=== PATIENT | male | born 1990 | race African-American/Black ===

== ENCOUNTER 2017-05-19 04:00 | Inpatient (IN) | payer OTHER ==
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
--- NOTE | ~2017-05-19 | DS ---
Unit #: [id number] #: [id number] Patient: IFEOMA YANG [id number] [facility] [address] [place] [address] [id number] MR#: [id number] NAME: IFEOMA YANG ROOM: P256 Age: 26 Sex: M Admission Date: 05/19/2017 : 1990 Discharge Date: 05/20/2017 Attending Physician: Sagar Galvin M.D. Primary Care Physician: Primary Care Physician No DISCHARGE SUMMARY REASON FOR ADMISSION Ifeoma is a 26-year-old man with a history of bipolar disorder and alcohol abuse, who presented to [facility] after ingesting 2 bottles of NyQuil. He could not state whether or not this was a suicide attempt, but later denied this stating he was just trying to "get a buzz." He was transferred from [facility] to [facility]. DIAGNOSTIC STUDIES LABORATORY RESULTS: Please see hospital chart. HOSPITAL COURSE Ifeoma was admitted and placed on overnight on suicide precautions. His home medications were determined by contacting his pharmacy and were restarted, however, the patient stated that he was absolutely not suffering from suicidal ideation and declined to accept medication or treatment. He stated that he had a "job to get to" and so that he would refuse all treatment. At this point, he no longer meets criteria for involuntary hospitalization, and he was discharged at his request. DISCHARGE DIAGNOSES AXIS I: Alcohol abuse; bipolar, not otherwise specified. AXIS II: Antisocial traits. AXIS III: Hypertension. AXIS IV: AXIS V: DISCHARGE INSTRUCTIONS The patient was given information for local mental health resources for followup and urge to follow up with his primary care physician. DISCHARGE MEDICATIONS Risperdal 2 mg b.i.d. for mood stability. Primary care medicines included Fergon 324 mg for iron supplementation, Lopressor 50 mg b.i.d. for hypertension, and Colace 100 mg b.i.d. for constipation. CONDITION AT DISCHARGE Improved. PROGNOSIS Fair. DIET AND ACTIVITY Unit #: [id number] #: [id number] Patient: IFEOMA YANG Ad miki. Dictated by... Sagar Galvin M.D. [facility]/yasmine TD: 05/21/2017 13:17 JOB #: [id number] DISCHARGE SUMMARY Page 1 of 1 X Sagar Galvin MD DISCHARGE SUMMARY
--- NOTE | ~2017-05-19 | HP ---
Unit #: [id number] #: [id number] Patient: IFEOMA YANG [id number] [place] [address] [id number] MR#: [id number] NAME: IFEOMA YANG ROOM: P256 Age: 26 Sex: M Admission Date: 05/19/2017 : 1990 Attending Physician: Sagar Galvin M.D. Admitting Physician: Sagar Galvin M.D. Primary Care Physician: Primary Care Physician No HISTORY AND PHYSICAL HISTORY OF PRESENT ILLNESS Ifeoma is a 26 year old admitted to [address] [place] [address] with depression after an alleged overdose of Nyquil. PAST MEDICAL HISTORY 1. High blood pressure. 2. History of anemia. PAST SURGICAL HISTORY Nothing reported. ALLERGIES No known drug allergies. SOCIAL HISTORY Smokes one pack per day. Drinks alcohol on occasion. Admits to using marijuana frequently. FAMILY HISTORY Medically noncontributory. REVIEW OF SYSTEMS CONSTITUTIONAL: No fever or chills. HEENT: Denies any sore throat, ear pain or runny nose. CARDIOVASCULAR: Denies chest pain, irregular heart rhythm or palpitations. CHEST: Denies shortness of breath or cough. No hemoptysis. GASTROINTESTINAL: Denies nausea, vomiting, diarrhea or chronic constipation. ENDOCRINE: Denies history of increased thirst or urination. No recent significant weight loss or gain. GENITOURINARY: Denies dysuria, frequency, or hematuria. SKIN: Denies any rashes. HEMATOLOGIC: Denies history of increased bleeding or bruising. MUSCULOSKELETAL: Denies any hot, swollen joints. No generalized muscle pain. NEUROLOGIC: Denies problems with vision or speech. No frequent, severe headaches. No numbness, tingling or weakness in any extremities. Denies loss of bladder or bowel control. CURRENT MEDICATIONS 1. Desyrel 50 mg q.h.s. 2. Risperdal 2 mg b.i.d. 3. Lopressor 50 mg b.i.d. Unit #: [id number] #: [id number] Patient: IFEOMA YANG 4. Ferrous gluconate 324 mg b.i.d. 5. Milk of Magnesia p.r.n. 6. Maalox p.r.n. 7. Tylenol p.r.n. 8. Colace q. day. PHYSICAL EXAMINATION GENERAL: Alert, well nourished. No apparent distress. VITAL SIGNS: Blood pressure 152/90, heart rate 74, respirations 16, and temperature 98.6. WEIGHT: 181. HEIGHT: 6 feet 3 inches. SKIN: Warm and dry without rash or lesion. HEENT: Normocephalic. TMs not viewed. Oral and nasal passages clear. Conjunctivae clear. PERRLA. EOMs intact. NECK: Supple without lymphadenopathy or thyromegaly. HEART: Regular rate and rhythm without murmur. LUNGS: Clear. ABDOMEN: Soft, nontender. : Not done. EXTREMITIES: No evidence of cyanosis, clubbing or edema. Moves all without focal deficit. NEUROLOGICAL: Grossly within normal limits. Cranial Nerves: II: Visual sanchez are intact. III, IV AND : Extraocular movements are intact. Pupils are equal, round and reactive to light. V: Facial sensation is grossly normal. VII: Facial movements and expression are normal. VIII: Auditory acuity grossly intact. IX, X: Uvula is midline. Phonation is normal. XI: Patient shrugs shoulders and turns head normally. XII: Tongue protrudes in the midline. Sensory and Motor Function: Sensory and motor sensation is grossly normal. Motor: moves all extremities well. Coordination: Gait is normal. Deep Tendon Reflexes: Intact. IMPRESSION 1. Psychiatric admission. 2. High blood pressure. 3. History of anemia. RECOMMENDATIONS PSYCHIATRIC: Per psychiatrist. MEDICAL: I see no contraindication to participate in this facility's activities. MEDICAL PROGNOSIS Good. MEDICAL CONDITION Stable. Dictated by... Joan Lewis P.A.-C. for Angelita Rucker/johnathon Unit #: [id number] #: [id number] Patient: IFEOMA YANG TD: 05/20/2017 08:38 JOB #: [id number] HISTORY AND PHYSICAL Page 1 of 1 X Joan Lewis HISTORY AND PHYSICAL
== END 2017-05-20 14:00 | disposition home or self-care (01) | DRG 897 ==
LOC: P2L 08:40 → POF 12:21 → P2L 12:24
DX: F10.10 Alcohol abuse, uncomplicated (principal); R45.851 Suicidal ideations; F60.2 Antisocial personality disorder; I10 Essential (primary) hypertension